=== PATIENT | male | born 1985 | race Two or more races ===

== ENCOUNTER 2021-01-10 08:55 | Emergency (ER) | payer OTHER ==
[~2021-01-10] VITALS: Ht 170.2 cm; Wt 63.6 kg
[2021-01-10] MEDS ORDERED: inhaler IH (09:17)
[2021-01-10] MEDS ORDERED: ALBUTEROL SULFATE HFA 90 MCG/PUFF 8 GM INHALER IH ONE (09:30)
[2021-01-10 09:35] VITALS: BP 87/64
[2021-01-10 09:37] LABS: COVID AG,FIA SOURCE NASOPHARYNGEAL
== END 2021-01-10 10:40 ==
LOC: EMS 08:57
DX: Z20.822 Contact with and (suspected) exposure to COVID-19 (principal); J45.909 Unspecified asthma, uncomplicated
CPT/HCPCS: 87426; 94640; 99283; J3535